=== PATIENT | female | born 1990 | race Caucasian/White ===

== ENCOUNTER 2023-02-20 13:14 | Outpatient (AMB) | payer OTHER, SELFPAY ==
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
[2023-02-20 13:21] VITALS: BP 122/84; PULSE 80; O2SAT 98; BMI 32.4
== END 2023-02-20 14:51 | disposition home or self-care (01) ==
PROVIDERS: Visit Provider Nurse Practitioner Family
DX: R51.9 Headache, unspecified (principal); R55 Syncope and collapse; R20.0 Anesthesia of skin; R20.2 Paresthesia of skin; R53.1 Weakness; R53.83 Other fatigue; R25.1 Tremor, unspecified
CPT/HCPCS: 99204

== ENCOUNTER → 2023-02-20 13:14 | Outpatient (BNVA) | payer OTHER, SELFPAY | PROVIDERS: Visit Provider Nurse Practitioner Family | DX: R51.9 Headache, unspecified (principal); R55 Syncope and collapse; R20.0 Anesthesia of skin; R20.2 Paresthesia of skin; R53.1 Weakness; R53.83 Other fatigue; R25.1 Tremor, unspecified | CPT/HCPCS: 99202 ==

== ENCOUNTER 2023-03-12 07:54 | Outpatient (REF) | payer OTHER, SELFPAY ==
--- NOTE | 2023-03-12 08:00 | EEG_ITS ---
SUMMARY: This is a 16-channel EEG with an EKG lead. The patient is reported awake during the tracing. Background EEG rhythm is low amplitude fast. Photic stimulation does not produce any significant abnormality. Hyperventilation is unremarkable. There is a brief couple of second run of right temporal sharply contoured theta range discharge. This happened during wakefulness. Cardiac lead does not reveal any significant abnormality. IMPRESSION: Mildly abnormal EEG, though not clearly diagnostic of seizure disorder. If no other cause of syncope is found, I would recommend a prolonged 48-hour EEG for better definition and to rule out seizure disorder. MD JHONY Loera/PIERRE / [id number]
== END 2023-03-12 07:55 | disposition home or self-care (01) ==
LOC: HO.NEURO 07:54
PROVIDERS: Visit Provider Nurse Practitioner Family
DX: R51.9 Headache, unspecified (principal); R55 Syncope and collapse; R20.0 Anesthesia of skin; R20.2 Paresthesia of skin; R53.1 Weakness
CPT/HCPCS: 95816

== ENCOUNTER → 2023-05-10 09:35 | Outpatient (REF) | payer OTHER, SELFPAY ==
--- NOTE | 2023-05-10 09:41 | CA_ITS ---
Transthoracic Echocardiogram Patient (Last, First, Middle): Hannah Khoury, Gender: Female Date of : 1990 Age: 32 Procedure Date: 05/10/2023 Procedure Type: Transthoracic Echocardiogram Location: OP Height: 160.02 cm Weight: 86.64 kg BSA: 1.90 m2 Heart Rate: bpm BP: 128 / 75 mmHg Sleep Technician: ROMA Referring MD: Cindy HARRIS Symptoms: R55 - Syncope and collapse Study Quality: Adequate Conclusions: - Normal left ventricular size and systolic function. There is mildly increased left ventricular wall thickness. The visually estimated ejection fraction is between 55-60%. There is no evidence of regional wall motion abnormalities. Diastolic function is normal for age. - Normal right ventricular cavity size and systolic function. Findings Left Ventricle Normal left ventricular size and systolic function. There is mildly increased left ventricular wall thickness. The visually estimated ejection fraction is between 55-60%. There is no evidence of regional wall motion abnormalities. Diastolic function is normal for age. Right Ventricle Normal right ventricular cavity size and systolic function. Atria The left atrium is normal in size. The right atrium is normal in size. Aortic Valve Normal aortic valve structure and function. There is no aortic valve stenosis. There is no aortic valve regurgitation. Mitral Valve The mitral valve appears normal. There is no mitral valve regurgitation. There is no mitral valve stenosis. Pulmonic Valve Normal pulmonic valve structure and function. There is trace pulmonic valve regurgitation. Tricuspid Valve Normal tricuspid valve structure. There is no tricuspid valve regurgitation. Tricuspid regurgitation envelope is inadequate for calculation of right ventricular systolic pressure. Normal right atrial pressure. Great Vessels All visible segments of the aorta are normal in size. Venous The inferior vena cava is normal in size and collapses greater than 50% with inspiration. Pericardium/Pleural There is no evidence of pericardial effusion. Prior Study Comparison No prior study available for comparison. Measurements 2D Linear Measurements IVSd: 0.95 0.6-0.9/0.6-1.0 cm LVIDd: 4.48 3.9-5.3/4.2-5.9 cm LVIDd Index: 2.36 2.4-3.2/2.2-3.1 cm/m2 LVIDs: 2.61 2.0-3.6 cm LVPWd: 1.08 0.7-1.1 cm LA Diam: 3.20 2.7-3.8/3.0-4.0 cm LAIDs Index: 1.68 1.5-2.3 cm/m2 LV Mass: 193.95 67-162/88-224 g LV Mass Index: 102.08 43-95/49-115 g/m2 LVOT Diam: 1.90 3.0+(-)1.3 cm 2D Systolic Function EF 4C: 62.10 >55% EF 2C: 52.00 >55% EF BiP: 56.80 >55% Mitral Valve MV Pk E: 0.82 MV PK A: 0.60 MV Decel Time: 204.00 E/A: 1.40 E'Lateral: 10.70 E'Medial: 10.80 E/E' Med: 7.60 E/E' Lat: 7.70 PHT: 60.00 MVA PHT: 3.67 Decel Mcdonald: 4.04 Aortic Valve AoV Pk Farrukh: 1.65 AoV Mn Farrukh: 1.14 AoV VTI: 0.31 AoV Pk Grad: 11.00 Aov Mn Grad: 6.00 JEREMIE Cont.VTI: 2.03 LVOT LVOT Pk Farrukh: 1.24 LVOT Mn Farrukh: 0.82 LVOT VTI: 0.22 LVOT Pk Grad: 6.00 LVOT Mn Grad: 3.00 LVOT Diam: 1.90 LVOT Area: 2.84 Diastolic Function MV Pk E: 0.82 MV Pk A: 0.60 E/A: 1.40 E'Medial: 10.80 E/E' Med: 7.60 E' Laterial: 10.70 E/E' Lat: 7.70 Right Ventricle TAPSE (mm): 28.90 TVS' Farrukh: 15.00 Tricuspid Valve RA Press: 3.00 Great Vessels Aorta Sinus of Valsalva: 3.10 2.0-3.5 cm Ao Asc: 2.80 2.1-3.4 cm Pulmonary Valve PV Pk Farrukh: 0.98 Peak PV Grad: 4.00 Updated in Other Vendor System with Status of Final Devin Garcia MD electronically signed on 05/12/2023 12:38:00 PM with status of Final
--- NOTE | 2023-05-10 09:41 | HM_ITS ---
* Total monitoring time 3 days. * Underlying rhythm is sinus with an average rate of 82/Min. Range 57 to 140/Min. * Rare supraventricular and ventricular ectopy. * No significant pauses or AV blocks. * Patient markers used in association with sinus rhythm and sinus tachycardia. * Chest pain in patient diary correlates with sinus rhythm. MTDD
== END ==
LOC: HO.CARD 09:35
PROVIDERS: Visit Provider Nurse Practitioner Family
DX: R55 Syncope and collapse (principal); R20.0 Anesthesia of skin; R20.2 Paresthesia of skin; R53.1 Weakness; R51.9 Headache, unspecified
CPT/HCPCS: 93242; 93306

== ENCOUNTER → 2023-05-10 09:41 | Outpatient (BNV) | payer OTHER, SELFPAY | PROVIDERS: Visit Provider Internal Medicine Cardiovascular Disease | DX: R00.0 Tachycardia, unspecified (principal) | CPT/HCPCS: 93244; 93306 ==

== ENCOUNTER 2023-08-19 08:35 | Outpatient (AMB) | payer OTHER, SELFPAY ==
[2023-08-19 08:39] VITALS: BP 120/70; PULSE 82; BMI 34.4
--- NOTE | 2023-08-19 08:39 | A.OFFVIS_ITS ---
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 These are across the front of the chest. Can happen any time. With and without exertion. No clear-cut exertional anginal patterns. No previous history of any coronary disease, myocardial infarction or cardiomyopathy. [facility] Family History Mother Diabetes HTN (hypertension) Cancer Sister Diabetes Sleep apnea HTN (hypertension) Social History (Updated 02/20/23 @ 13:27 by ROGELIO Malave) Alcohol intake: never Patient Tobacco Use Status: Never used Tobacco Review of Systems Const Denies chills, Denies daytime sleepiness, Denies fatigue, Denies fever(s), Denies lethargy, Denies snoring, Denies stops breathing during sleep, Denies weight gain, Denies weight loss and Denies other Eyes Denies loss of vision ENT Reports hearing loss Card Denies chest pain, Denies irregular heart rhythm, Denies claudication, Denies leg edema, Denies lightheadedness, Denies palpitations, Denies dyspnea, Denies dyspnea on exertion, Denies orthopnea and Reports other Resp Denies cough, Denies excessive phlegm production, Denies dyspnea, Denies dyspnea on exertion and Denies snoring GI Denies abdominal pain, Denies hematochezia, Denies change in bowel habits, D enies nausea and Denies vomiting Denies dysuria Musc Denies arthralgias, Denies muscle weakness and Denies numbness Skin/Breast Reports as per HPI, Denies nail changes and Denies rash Neuro Reports confusion, Denies loss of vision, Denies memory loss and Denies numbness Psych Reports anxiety, Reports confusion, Denies depression and Denies memory loss Endo Denies fatigue and Denies palpitations Alistair/Lymph Denies easy bruising Physical Exam Vital Signs: Last Vital Signs Pulse 82 08/19/23 08:39 BP 120/70 08/19/23 08:39 BMI result Body Mass Index 34.4 Const General: confusion Orientation/consciousness: confusion HEENT Other: Unremarkable Head: Yes normal to inspection Neck Neck: Yes normal visual inspection Chest Chest palpation & inspection: normal inspection of the chest Resp Auscultation: clear to auscultation bilaterally Cardio Palpation: normal PMI Heart sounds: S1 normal heart sound present, S2 normal heart sound present, no gallops, no murmurs and no rubs GI Palpation (GI): Soft to palpation Back/Spine/Pelvis Other: unremarkable Skin General skin exam: no rashes or lesions noted Neuro General: confusion Extrem General: Yes normal to inspection Psych Mental Status: mental status grossly normal Office Procedures EKG Details: EKG with sinus rhythm at 82/Min; no significant ST-T changes and otherwise unremarkable[place] [id number], Complete Assessment & Plan Assessment & Plan (1) Precordial chest pain: Code(s): R07.2 - Precordial pain Category: Medical Plan Baseline EKG unremarkable. Echocardiogram with LVEF of 55-60%; no wall motion abnormalities and otherwise unremarkable. In the Holter, underlying rhythm is sinus with rare ectopy. Overall, atypical symptoms; will assess performance on stress test and any clear exertional findings. Obtain exercise stress echo. Orders: Orders CA echo stress exercise Today R07.2 - Precordial pain Coding Level of Care Code New Pt Level 3 (02817) Diagnoses Precordial chest pain R07.2 CPT Codes EKG - CPT: 30714-[id number], Complete ([id number])
== END 2023-08-19 13:50 | disposition home or self-care (01) ==
PROVIDERS: Visit Provider Internal Medicine
DX: R07.2 Precordial pain (principal)
CPT/HCPCS: 93010; 99213

== ENCOUNTER → 2023-08-19 08:35 | Outpatient (BNVA) | payer OTHER, SELFPAY | PROVIDERS: Visit Provider Internal Medicine | DX: R07.2 Precordial pain (principal) | CPT/HCPCS: 93005; 99212 ==

== ENCOUNTER → 2023-10-01 10:25 | Outpatient (REF) | payer OTHER, SELFPAY ==
--- NOTE | 2023-10-01 10:28 | CA_ITS ---
Acquisition Time: 2023-10-01 10:44:28 Total Exercise Time: 00:06:00 Test Indications: Chest Pain Medications: SUMATRIPTAN TOPIRAMATE RIZATRIPTAN Protocol: VALENCIA Max HR: 162 BPM 86% of Pred: 188 BPM Max BP: 174/070 mmHG Max Work Load: 7.0 METS Exercise stress test 6 min of Valencia protocol achieving 86% MPHR, terminated per patient request, she was too tired, sob, and couldnt go any more, with mild to moderate SOB, without arrhythmias, with normotensive response to exercise, without EKG chnages, Echo images obtained by tech at rest and immediately post peak exercise. Definity contrast used. Test reviewed with Dr. Garcia. Referred By: Ramos Lazo Overread By: Josefina Cui
== END ==
LOC: HO.CARD 10:25
PROVIDERS: Visit Provider Internal Medicine
DX: R07.2 Precordial pain (principal)
CPT/HCPCS: 93350; Q9957

== ENCOUNTER → 2023-10-01 10:28 | Outpatient (BNV) | payer OTHER, SELFPAY | PROVIDERS: Visit Provider Nurse Practitioner | DX: R06.02 Shortness of breath (principal) | CPT/HCPCS: 93016; 93018; 93350; 93352 ==